=== PATIENT | female | born 1965 | race Caucasian/White ===

== ENCOUNTER 2016-08-01 17:39 | Emergency (ER) | payer SELFPAY ==
[2016-08-01 18:01] VITALS: BP 175/96
--- NOTE | 2016-08-01 18:54 | UC ---
Throat Pain/Nasal Eusebio HPI - HPI Summary HPI Summary: ST worsening x 4 days, nasal eusebio with sneeze and cough, no exposure to school- aged kids. Denies fever vomiting or rash. - History of Current Complaint Chief Complaint: UCRespiratory Stated Complaint: SORE THROAT Time Seen by Provider: 08/01/16 18:41 Hx Obtained From: Patient Hx Last Menstrual Period: hysterectomy ?: No Onset/Duration: Gradual Onset, Lasting Days Severity: Moderate Cough: Productive Associated Signs & Symptoms: Positive: Nasal Discharge. Negative: Fever, Vomiting, Rash - Allergies/Home Medications Allergies/Adverse Reactions: Allergies Allergy/AdvReac Type Severity Reaction Status Date / Time Acetaminophen [From Tylenol] Allergy Severe Shakes Verified 08/01/16 17:56 Penicillins Allergy Unknown Unknown Verified 08/01/16 17:56 Reaction Details Home Medications: Home Medications Naproxen [Naproxen 500 MG TABS] 500 mg PO BID PRN 08/01/16 [History Confirmed ] PMH/Surg Hx/FS Hx/Imm Hx Endocrine History Of: Denies: Diabetes, Thyroid Disease Cardiovascular History Of: Denies: Cardiac Disorders, Hypertension, Pacemaker/ICD Respiratory History Of: Denies: COPD, Asthma GI/ History Of: Denies: Ulcer, Renal Disease - Surgical History Surgical History: Yes Surgery Procedure, Year, and Place: hysterectomy; tonsilectomy - Family History Known Family History: Positive: Hypertension, Other - CVA mother - Social History Lives: Alone Alcohol Use: Occasionally Substance Use Type: None Smoking Status (MU): Heavy Every Day Tobacco Smoker Type: Cigarettes Amount Used/How Often: 1 ppd Length of Time of Smoking/Using Tobacco: 30 years Have You Smoked in the Last Year: Yes Review of Systems Constitutional: Negative Skin: Negative Eyes: Negative ENT: Sore Throat, Nasal Discharge Respiratory: Cough Cardiovascular: Negative Gastrointestinal: Negative Genitourinary: Negative Motor: Negative Neurovascular: Negative Musculoskeletal: Negative Neurological: Negative Psychological: Negative All Other Systems Reviewed And Are Negative: Yes Physical Exam Triage Information Reviewed: Yes Appearance: Well-Appearing, Pain Distress - mild Vital Signs: Initial Vital Signs Temp 97.2 F 08/01/16 17:57 Pulse 79 08/01/16 17:57 Resp 16 08/01/16 17:57 BP 175/96 08/01/16 17:57 Pulse Ox 99 08/01/16 17:57 Vital Signs Reviewed: Yes Eye Exam: Normal Eyes: Positive: Conjunctiva Clear ENT: Positive: Hearing grossly normal, Nasal congestion, Muffled/hoarse voice - hoarse. Negative: Tonsillar swelling - no tonsils Dental Exam: Other - dentures Neck exam: Normal Neck: Positive: Supple, Nontender, No Lymphadenopathy Respiratory Exam: Other - occ cough Respiratory: Positive: Chest non-tender, Lungs clear, Normal breath sounds, No respiratory distress, No accessory muscle use Cardiovascular Exam: Normal Cardiovascular: Positive: RRR, No Murmur Musculoskeletal Exam: Normal Neurological Exam: Normal Neurological: Positive: Alert Psychological Exam: Normal Skin Exam: Normal Throat Pain/Nasal Course/Dx - Differential Dx/Diagnosis Provider Diagnoses: URI, likely viral. Elevated blood pressure due to pain Discharge - Discharge Plan Condition: Stable Disposition: HOME Patient Education Materials: Upper Respiratory Infection (ED) Referrals: Melissa Gutiérrez MD [Primary Care Provider] - 2 Weeks Additional Instructions: Rapid strep negative. Try taking ibuprofen 1 hour before bedtime to help with your throat pain. You can also gargle with a numbing agent, such as chloraseptic or listerine. Call or return if you develop increasing fever, shortness of breath, chest pain , bloody sputum, or otherwise worsen. If you have not improved at all after several days, contact your primary care physician or return here.
== END 2016-08-01 19:18 | disposition home or self-care (01) ==
LOC: UCEAST 17:39
DX: J06.9 Acute upper respiratory infection, unspecified (principal); R03.0 Elevated blood-pressure reading, without diagnosis of hypertension; Z90.710 Acquired absence of both cervix and uterus; Z88.6 Allergy status to analgesic agent; Z88.0 Allergy status to penicillin; F17.210 Nicotine dependence, cigarettes, uncomplicated
CPT/HCPCS: 87651; 99211; G0463

== ENCOUNTER 2017-03-30 17:44 | Emergency (ER) | payer SELFPAY ==
[2017-03-30 18:03] VITALS: BP 158/97
--- NOTE | 2017-03-30 19:05 | UC ---
Ear Complaint HPI - HPI Summary HPI Summary: Patient presents with an unremarkable past medial history. She presents today with complaints of right ear fullness, and a sensation that she has something in her ear. Denies any canal drainage, trauma, or injury. She also complains of cough, chest congestion x one week. She denies any chest pain, dyspnea, abdominal pain, nausea, vomiting, diarrhea, rash or joint pain. - History of Current Complaint Chief Complaint: UCGeneralIllness Stated Complaint: EAR CLOGGED Time Seen by Provider: 03/30/17 18:39 Hx Obtained From: Patient Hx Last Menstrual Period: hysterectomy ?: No Onset/Duration: Gradual Onset, Lasting Days Severity Initially: Mild Severity Currently: Mild Associated Signs/Symptoms: Positive: URI Symptoms - Allergies/Home Medications Allergies/Adverse Reactions: Allergies Allergy/AdvReac Type Severity Reaction Status Date / Time Acetaminophen [From Tylenol] Allergy Severe Shakes Verified 03/30/17 18:03 Penicillins Allergy Unknown Unknown Verified 03/30/17 18:03 Reaction Details Home Medications: Home Medications Ibuprofen [Advil] 800 mg PO Q8HR PRN 03/30/17 [History Confirmed 03/30/17] PMH/Surg Hx/FS Hx/Imm Hx Previously Healthy: Yes - Surgical History Surgical History: Yes Surgery Procedure, Year, and Place: hysterectomy; tonsilectomy - Family History Known Family History: Positive: Hypertension, Other - CVA mother - Social History Occupation: Employed Full-time Lives: Alone Alcohol Use: Occasionally Substance Use Type: None Smoking Status (MU): Heavy Every Day Tobacco Smoker Type: Cigarettes Amount Used/How Often: 1 ppd Length of Time of Smoking/Using Tobacco: 30 years Have You Smoked in the Last Year: Yes - Immunization History Most Recent Influenza Vaccination: delines Review of Systems Constitutional: Negative Skin: Negative Eyes: Negative ENT: Ear Ache, Nasal Discharge, Sinus Congestion Respiratory: Cough Cardiovascular: Negative Gastrointestinal: Negative Genitourinary: Negative Motor: Negative Neurovascular: Negative Musculoskeletal: Negative Neurological: Negative Psychological: Negative Is Patient Immunocompromised?: No All Other Systems Reviewed And Are Negative: Yes Physical Exam Triage Information Reviewed: Yes Appearance: Well-Appearing Vital Signs: Initial Vital Signs Temp 98.4 F 03/30/17 17:58 Pulse 77 03/30/17 17:58 Resp 20 03/30/17 17:58 BP 158/97 03/30/17 17:58 Pulse Ox 96 03/30/17 17:58 Vital Signs Reviewed: Yes Eye Exam: Normal ENT Exam: Normal ENT: Positive: Nasal congestion, Nasal drainage, TM bulging, TM dull, TM red, Sinus tenderness Neck exam: Normal Neck: Positive: 1 Respiratory: Positive: Lungs clear, Normal breath sounds, No respiratory distress Cardiovascular Exam: Normal Abdominal Exam: Normal Skin Exam: Normal Ear Complaint Course/Dx - Course Course Of Treatment: Patient presents with a current history of smoking and presents with increased cough, and chest congeston without chest pain, dyspena or any other cardiiac symtpoms. She does have some course rhoncus lung sounds consistent with bronchitis, and also the right TM is dull and retracted consistent with otitis media. She was treated with zpk and albuterol. If her symtpoms do not improve I recommend she follow up with her PCP. She did verbalized understanding and was in agreement with the discharge plan. - Differential Dx/Diagnosis Differential Diagnosis/HQI/PQRI: Bronchitis, Otitis Media Provider Diagnoses: otitis media. bronchitis Discharge - Discharge Plan Condition: Stable Disposition: HOME Prescriptions: Albuterol HFA INHALER* [Ventolin HFA Inhaler*] 1 puff INH Q4H PRN #1 mdi PRN Reason: bronchitis Azithromycin TAB* [Zithromax TAB (Z-DEANDRA) 250 mg #6 tabs] 250 mg PO DAILY #6 tab Patient Education Materials: Otitis Media (ED), Acute Bronchitis (ED) Referrals: Melissa Gutiérrez MD [Primary Care Provider] -
== END 2017-03-30 19:00 | disposition home or self-care (01) ==
LOC: UCEAST 17:44
DX: H66.91 Otitis media, unspecified, right ear (principal); J40 Bronchitis, not specified as acute or chronic; F17.210 Nicotine dependence, cigarettes, uncomplicated; Z88.6 Allergy status to analgesic agent; Z88.0 Allergy status to penicillin
CPT/HCPCS: 99212; G0463

== ENCOUNTER 2017-08-09 10:01 | Emergency (ER) | payer OTHER ==
[2017-08-09 10:17] VITALS: BP 168/94
--- NOTE | 2017-08-09 10:30 | UC ---
Skin Complaint HPI - HPI Summary HPI Summary: PATIENT WAS OUT DOING YARD WORK 2 DAYS AGO AND HAS HAD RIGHT POSTERIOR SHOULDER PAIN SINCE THEN. HER MOM LOOKED AT IT AND FOUND IT WAS A TICK. TRIED TO REMOVE IT BUT SHE THINKS THERE MAY BE SOME RETAINED TICK PARTS. HAS SURROUNDING REDNESS AND TENDERNESS. - History of Current Complaint Chief Complaint: UCSkin Time Seen by Provider: 08/09/17 10:11 Stated Complaint: TICK BITE Hx Obtained From: Patient Hx Last Menstrual Period: hysterectomy Onset/Duration: Gradual Onset, Lasting Days, Still Present Timing: Constant Onset Severity: Mild Current Severity: Moderate Pain Intensity: 0 Pain Scale Used: 0-10 Numeric Location: Discrete - RIGHT UPPER BACK Aggravating Factor(s): Touch Alleviating Factor(s): Nothing Associated Signs & Symptoms: Positive: Tenderness - Allergy/Home Medications Allergies/Adverse Reactions: Allergies Allergy/AdvReac Type Severity Reaction Status Date / Time acetaminophen [From Tylenol] Allergy Shakes Verified 08/09/17 10:18 Penicillins Allergy Hives Verified 08/09/17 10:18 Review of Systems Constitutional: Negative Skin: Other - TICK BITE Respiratory: Negative Cardiovascular: Negative Gastrointestinal: Negative All Other Systems Reviewed And Are Negative: Yes PMH/Surg Hx/FS Hx/Imm Hx Previously Healthy: Yes - Surgical History Surgical History: Yes Surgery Procedure, Year, and Place: hysterectomy; tonsilectomy - Family History Known Family History: Positive: Hypertension, Other - CVA mother - Social History Alcohol Use: Occasionally Substance Use Type: None Smoking Status (MU): Heavy Every Day Tobacco Smoker Type: Cigarettes Amount Used/How Often: 1 ppd Length of Time of Smoking/Using Tobacco: 30 years Have You Smoked in the Last Year: Yes - Immunization History Most Recent Influenza Vaccination: delines Physical Exam Triage Information Reviewed: Yes Appearance: Well-Appearing, No Pain Distress, Well-Nourished Vital Signs: Initial Vital Signs Temp 98 F 08/09/17 10:12 Pulse 74 08/09/17 10:12 Resp 16 08/09/17 10:12 BP 168/94 08/09/17 10:12 Pulse Ox 97 08/09/17 10:12 Vital Signs Reviewed: Yes Eyes: Positive: Conjunctiva Clear ENT: Positive: Hearing grossly normal Neck: Positive: Supple Respiratory: Positive: No respiratory distress, No accessory muscle use Cardiovascular: Positive: Pulses Normal Abdomen Description: Positive: Soft Musculoskeletal: Positive: No Edema Neurological: Positive: Alert Psychological: Positive: Age Appropriate Behavior Skin: Positive: Other - TICK BITE SITE RIGHT UPPER BACK WITH MILD SURROUNDING ERYTHEMA AND TTP. NO RETAINED TICK PARTS SEEN Course/Dx - Diagnoses Provider Diagnoses: TICK BITE, LYME PEP Discharge - Sign-Out/Discharge Documenting (check all that apply): Discharge/Admit/Transfer - Discharge Plan Condition: Stable Disposition: HOME Prescriptions: Doxycycline Monohydrate [Doxycycline Monohydrate] 2 cap PO ONCE #2 cap Patient Education Materials: Tick Bite (ED) Referrals: Melissa Gutiérrez MD [Primary Care Provider] - If Needed Additional Instructions: TICK BITE PROPHYLAXIS You received 200mg of doxycycline for prophylaxis against Lyme disease. The Infectious Disease Society of [place] (IDSA) does not generally recommend antimicrobial prophylaxis for prevention of Lyme disease after a recognized tick bite. However, in areas that are highly endemic for Lyme disease, a single dose of doxycycline may be offered to adult patients (200 mg) who are not and to children older than 8 years of age (4 mg/kg up to a maximum dose of 200 mg) when all of the following circumstances exist: CRITERIA FOR RECEIVING PROPHYLACTIC TREATMENT FOR LYME DISEASE 1) TICK ATTACHED FOR AT LEAST 36 HRS 2) TICK IS AN ADULT OR [place] DEER TICK 3) YOU LIVE IN AN AREA WHERE LYME DISEASE IS PREVALENT (i.e., [place], [place], [place] , [place], [place], [place], [place], [place], [place], [place], [place], [place]) 4) YOU HAVE NO CONTRAINDICATION TO THE MEDICATION (DOXYCYCLINE) 5) PROPHYLAXIS IS BEGUN WITHIN 72 HRS OF TICK REMOVAL BE VIGILANT OF YOUR SYMPTOMS AND DON'T HESITATE TO GET SEEN AGAIN IF YOU DEVELOP UNEXPLAINED FEVER, HEADACHE, JOINT PAIN, BODY ACHES, RASH OR ANY OTHER CONCERNING SYMPTOMS. Antibiotic treatment following a tick bite is not recommended as a means to prevent anaplasmosis, babesiosis, ehrlichiosis, or [place] spotted fever. There is no evidence this practice is effective, and it may simply delay onset of disease. Instead, persons who experience a tick bite should be alert for symptoms suggestive of tickborne illness and consult a physician if fever, rash, or other symptoms of concern develop. - Billing Disposition and Condition Condition: STABLE Disposition: HOME
== END 2017-08-09 10:42 | disposition home or self-care (01) ==
LOC: UCEAST 10:01
DX: S40.261A Insect bite (nonvenomous) of right shoulder, initial encounter (principal); W57.XXXA Bitten or stung by nonvenomous insect and other nonvenomous arthropods, initial encounter; Y93.H9 Activity, other involving exterior property and land maintenance, building and construction; Y92.096 Garden or yard of other non-institutional residence as the place of occurrence of the external cause; Z88.6 Allergy status to analgesic agent; Z88.0 Allergy status to penicillin; F17.210 Nicotine dependence, cigarettes, uncomplicated
CPT/HCPCS: 99212; G0463

== ENCOUNTER → 2018-03-02 19:11 | Emergency (ER) | payer OTHER ==
[~2018-03-02 19:11] MED LIST: Iodixanol* (CONTRAST) 320 MG/ML 100 ML SDV IV ONE; Ketorolac INJ* 30 MG/ML 1 ML VIAL IV PUSH ONE; Morphine VIAL* 4 MG/ML VIAL (1 ml vial) IV ONE; NS 0.9% 1000 ML* 1,000 ML IV ONE; Ondansetron INJ* 2 MG/ML VIAL IV ONE; Tamsulosin CAP* 0.4 MG PO ONE; oxyCODONE/Acetamin 5/325 MG* TAB PO ONE
--- NOTE | 2018-03-02 19:51 | ED ---
Abdominal Pain/Female - HPI Summary HPI Summary: A 52 y/o female accompanied by family brought in by ambulance presents to the ED c/o LLQ abdominal pain. Currently, the patient is experiencing LLQ abdominal pain reaching 8/10 in severity. In the ED course, the patient has a pulse of 79 BPM, O2 saturation of 96%, and blood pressure of 176/105. As per triage, "Pt arrived BLS by [facility] c/o LLQ ABD pain since 1500hrs today. Pt had taken a dulcolax x2 this afternoon and soon started to have ABD cramping". According to the patient, the constant LLQ abdominal pain started approximately at 1500 today. She denies any urinary issues. Patient took two Dulcolax today. PMHx of hysterectomy and hypoglycemia, denies cholecystectomy and appendectomy. - History of Current Complaint Chief Complaint: EDAbdPain Stated Complaint: ABD PAIN Time Seen by Provider: 03/02/18 19:24 Hx Obtained From: Patient Hx Last Menstrual Period: hysterectomy Onset/Duration: Sudden Onset, Lasting Hours, Still Present Timing: Constant Severity Initially: Severe Severity Currently: Severe Pain Intensity: 8 Pain Scale Used: 0-10 Numeric Location: Discrete At: LLQ Radiates: No Character: Cramping Aggravating Factor(s): Nothing Alleviating Factor(s): Nothing Associated Signs and Symptoms: Positive: Negative Allergies/Adverse Reactions: Allergies Allergy/AdvReac Type Severity Reaction Status Date / Time acetaminophen [From Tylenol] Allergy Shakes Verified 08/09/17 10:18 Penicillins Allergy Hives Verified 08/09/17 10:18 PMH/Surg Hx/FS Hx/Imm Hx Endocrine/Hematology History: Denies: Hx Diabetes, Hx Thyroid Disease Cardiovascular History: Denies: Hx Hypertension, Hx Pacemaker/ICD Respiratory History: Denies: Hx Asthma, Hx Chronic Obstructive Pulmonary Disease (COPD) GI History: Denies: Hx Ulcer History: Denies: Hx Renal Disease Sensory History: Denies: Hx Hearing Aid Neurological History: Reports: Hx Headaches - topramate Psychiatric History: Denies: Hx Panic Disorder - Surgical History Surgery Procedure, Year, and Place: hysterectomy; tonsilectomy Infectious Disease History: No Infectious Disease History: Denies: Hx Clostridium Difficile, Hx Hepatitis, Hx Human Immunodeficiency Virus (HIV), Hx of Known/Suspected MRSA, Hx Shingles, Hx Tuberculosis, Hx Known/ Suspected VRE, Hx Known/Suspected VRSA, History Other Infectious Disease, Traveled Outside the [place] in Last 30 Days - Family History Known Family History: Positive: Hypertension, Other - CVA mother - Social History Alcohol Use: Occasionally Substance Use Type: Reports: None Smoking Status (MU): Heavy Every Day Tobacco Smoker Type: Cigarettes Amount Used/How Often: 1 ppd Length of Time of Smoking/Using Tobacco: 30 years Have You Smoked in the Last Year: Yes Review of Systems Negative: Fever Positive: Abdominal Pain - LLQ Positive: no symptoms reported All Other Systems Reviewed And Are Negative: Yes Physical Exam - Summary Physical Exam Summary: Appearance: Well appearing, no pain distress Skin: warm, dry, reflects adequate perfusion Head/face: normal Eyes: EOMI, TIANA ENT: normal Neck: supple, non-tender Respiratory: CTA, breath sounds present Cardiovascular: RRR, pulses symmetrical Abdomen: LLQ tenderness, soft Musculoskeletal: normal, strength/ROM intact Neuro: normal, sensory motor intact, A&Ox3 Triage Information Reviewed: Yes Vital Signs On Initial Exam: Initial Vitals Pulse BP Pulse Ox 79 176/105 98 03/02/18 19:22 03/02/18 19:22 03/02/18 19:22 Vital Signs Reviewed: Yes Diagnostics - Vital Signs Vital Signs Temp Pulse Resp BP Pulse Ox 03/02/18 19:35 97.7 F 85 16 176/105 100 03/02/18 19:32 81 97 03/02/18 19:22 79 176/105 98 - Laboratory Result Diagrams: 03/02/18 19:42 03/02/18 19:42 Lab Statement: Any lab studies that have been ordered have been reviewed, and results considered in the medical decision making process. - CT CT A/P CT Interpretation Completed By: Radiologist - Minimally obstructing 6 mm calculus left UPJ. ED PHYSICIAN REVIEWED THIS RADIOLOGY REPORT. Abdominal Pain Fem Course/Dx - Course Course Of Treatment: A 52 y/o female accompanied by family brought in by ambulance presents to the ED c/o LLQ abdominal pain. Currently, the patient is experiencing LLQ abdominal pain reaching 8/10 in severity. In the ED course, the patient has a pulse of 79 BPM, O2 saturation of 96%, and blood pressure of 176/105. As per triage, "Pt arrived BLS by [facility] c/o LLQ ABD pain since 1500hrs today. Pt had taken a dulcolax x2 this afternoon and soon started to have ABD cramping". According to the patient, the constant LLQ abdominal pain started approximately at 1500 today. She denies any urinary issues. Patient took two Dulcolax today. PMHx of hysterectomy and hypoglycemia, denies cholecystectomy and appendectomy. Physical exam revealed LLQ tenderness. A CT A/ P revealed minimally obstructing 6 mm calculus left UPJ. Hematology and Chemistry was done. Labs significant for 14.7 WBC, 33 MCH, 1.05 Creatinine, and 127 Glucose. In the ED course, the patient recieved Visipaque, Toradol, Morphine, Zofran, Percocet, Flomax, and IV fluids. Patient will be discharged with a diagnosis renal calculi. Patient will be sent home with Percocet and Flomax. Patient is to follow up with Urology in 2-3 days. Patient is agreeable with this plan. - Diagnoses Differential Diagnosis: Positive: Diverticulitis, Renal Colic, Urinary Tract Infection Provider Diagnoses: Renal calculi Discharge - Sign-Out/Discharge Documenting (check all that apply): Patient Departure - DISCHARGE - Discharge Plan Condition: Stable Disposition: HOME Prescriptions: Oxycodone HCl/Acetaminophen [Percocet] 1 tab PO TID #15 tab MDD 3 Tamsulosin CAP* [Flomax CAP*] 0.4 mg PO DAILY #14 cap Patient Education Materials: Kidney Stones (ED) Referrals: Rahul Rivero MD [Primary Care Provider] - 3 Days August Godinez MD [Medical Doctor] - 3 Days Additional Instructions: FOLLOW UP WITH UROLOGY IN 2-3 DAYS. TAKE MEDICATIONS PRESCRIBED. RETURN TO ED FOR ANY NEW OR WORSENING SYMPTOMS. - Billing Disposition and Condition Condition: STABLE Disposition: Home - Attestation Statements Document Initiated by Scribe: Yes Documenting Scribe: Lonnie Scott Provider For Whom Tan is Documenting (Include Credential): Balaji Duque MD Scribe Attestation: Lonnie Pineda, scribed for Balaji Duque MD on 03/02/18 at 2345. Scribe Documentation Reviewed: Yes Provider Attestation: The documentation as recorded by the Lonnie martin accurately reflects the service I personally performed and the decisions made by , Balaji Duque MD Status of Scribe Document: Viewed
[2018-03-02 19:55] LABS: ABS Basophils 0.1 10^3/ul (0-0.2); ABS Eosinophils 0.1 10^3/ul (0-0.6); ABS Lymphocytes 1.6 10^3/ul (1.0-4.8); ABS Monocytes 0.7 10^3/ul (0-0.8); ABS Neutrophils 12.2 10^3/ul (1.5-7.7); ABS Nucleated RBC 0 10^3/ul; Eosinophil % 0.7 %; Hematocrit 46 % (35-47); Hemoglobin 15.7 g/dl (12.0-16.0); Mean Corpuscular HGB Conc 34 g/dl (31-36); Mean Corpuscular Hemoglobin 33 pg (27-31); Mean Corpuscular Volume 95 fL (80-97); Mean Platelet Volume 7.4 fL (7.4-10.4); Nucleated Red Blood Cells % 0.1; Platelet Count 262 10^3/ul (150-450); Red Cell Distribution Width 13 % (10.5-15); White Blood Count 14.7 10^3/ul (3.5-10.8)
[2018-03-02 20:05] LABS: INR 0.89 (0.77-1.02)
[2018-03-02 20:13] LABS: EGFR Non-African American 55.3 (>60)
[2018-03-02 23:09] VITALS: BP 154/89
== END | disposition home or self-care (01) ==
LOC: ED 19:11
DX: N20.1 Calculus of ureter (principal); Z88.6 Allergy status to analgesic agent; Z88.0 Allergy status to penicillin; Z90.710 Acquired absence of both cervix and uterus; F17.210 Nicotine dependence, cigarettes, uncomplicated
CPT/HCPCS: 36415; 74177; 80053; 83690; 84702; 85025; 85610; 85730; 96374; 96375; 99284; A9270-GY; J1885; J2270; J2405; Q9967

== ENCOUNTER 2018-03-29 13:22 | Emergency (ER) | payer OTHER ==
[2018-03-29 13:57] VITALS: BP 139/88
--- NOTE | 2018-03-29 14:34 | UC ---
Shoulder Pain HPI - HPI Summary HPI Summary: 52 yo female presents with RIGHT shoulder pain. She tells me that about 2 months ago she tripped and fell onto her right shoulder. Since that time has had pain and decreased ROM in the shoulder. She has seen her PCP who did a steroid injection into the shoulder and PT for this, but is not having much improvement. She has not had an XR of the shoulder and someone advised her to obtain this. Denies numbness or tingling. - History of Current Complaint Chief Complaint: UCUpperExtremity Stated Complaint: SHOULDER INJURY Time Seen by Provider: 03/29/18 14:16 Hx Obtained From: Patient Hx Last Menstrual Period: na Onset/Duration: Sudden Onset Severity Initially: Severe Severity Currently: Severe Pain Intensity: 8 - Allergies/Home Medications Allergies/Adverse Reactions: Allergies Allergy/AdvReac Type Severity Reaction Status Date / Time acetaminophen [From Tylenol] Allergy Shakes Verified 03/29/18 13:57 Penicillins Allergy Hives Verified 03/29/18 13:57 Home Medications: Home Medications Lisinopril 40 mg PO DAILY WITH MEAL 03/29/18 [History Confirmed 03/29/18] NK [No Home Medications Reported] 03/29/18 [History Confirmed 03/29/18] PMH/Surg Hx/FS Hx/Imm Hx Cardiovascular History: Hypertension - Surgical History Surgical History: Yes Surgery Procedure, Year, and Place: hysterectomy; tonsilectomy - Family History Known Family History: Positive: Hypertension, Other - CVA mother - Social History Occupation: Employed Full-time Lives: With Family Alcohol Use: Occasionally Substance Use Type: None Smoking Status (MU): Heavy Every Day Tobacco Smoker Type: Cigarettes Amount Used/How Often: 1 ppd Length of Time of Smoking/Using Tobacco: 30 years Have You Smoked in the Last Year: Yes - Immunization History Most Recent Influenza Vaccination: delines Review of Systems All Other Systems Reviewed And Are Negative: Yes Constitutional: Positive: Negative Skin: Positive: Negative Respiratory: Positive: Negative Cardiovascular: Positive: Negative Neurovascular: Positive: Negative Musculoskeletal: Positive: Other: - right shoulder pain Neurological: Positive: Negative Psychological: Positive: Negative Physical Exam - Summary Physical Exam Summary: GENERAL: NAD. WDWN. No pain distress. SKIN: No rashes, sores, lesions, or open wounds. CHEST: No accessory muscle use. Breathing comfortably and in no distress. CV: Pulses intact radial and ulnar. Cap refill <2seconds MSK: RIGHT SHOULDER: Mild TTP at AC joint. Flexion to ~60deg before pain stops her. No edema or obvious bony deformities. Credit Counselor strength intact. Unable to perform specialized testing due to pain and decreased ROM. NEURO: Alert. Sensations intact C4-T1. PSYCH: Age appropriate behavior. Triage Information Reviewed: Yes Vital Signs: Initial Vital Signs Temp 97.8 F 03/29/18 13:53 Pulse 70 03/29/18 13:53 Resp 18 03/29/18 13:53 BP 139/88 03/29/18 13:53 Pulse Ox 100 03/29/18 13:53 Vital Signs Reviewed: Yes Shoulder Course/Dx - Course Course Of Treatment: XR: IMPRESSION: #. Osteoarthritis. #. Large inferior acromial bone spur. #. No significant interval change compared with the January 10, 2018 exam. Discussed results with pt. Will refer her to Orthopedics for further evaluation and treatment. - Differential Dx/Diagnosis Provider Diagnosis: Right shoulder pain Discharge - Sign-Out/Discharge Documenting (check all that apply): Patient Departure All imaging exams completed and their final reports reviewed: Yes - Discharge Plan Condition: Stable Disposition: HOME Patient Education Materials: Shoulder Pain (ED) Referrals: Rahul Rivero MD [Primary Care Provider] - Dave Dukes MD [Medical Doctor] - As Soon As Possible Additional Instructions: If you develop a fever, shortness of breath, chest pain, new or worsening symptoms - please call your PCP or go to the ED. Your blood pressure was high at todays visit. Please see your primary provider within 4 weeks for recheck and re-evaluation. Please call Orthopedics at the number below to schedule a follow up appointment as soon as possible for further evaluation of your shoulder pain - Billing Disposition and Condition Condition: STABLE Disposition: Home
== END 2018-03-29 15:01 | disposition home or self-care (01) ==
LOC: UCEAST 13:22
DX: M25.511 Pain in right shoulder (principal); I10 Essential (primary) hypertension; F17.210 Nicotine dependence, cigarettes, uncomplicated; Z88.6 Allergy status to analgesic agent; Z88.0 Allergy status to penicillin; Z79.899 Other long term (current) drug therapy; W01.0XXA Fall on same level from slipping, tripping and stumbling without subsequent striking against object, initial encounter; Y92.9 Unspecified place or not applicable
CPT/HCPCS: 99211; G0463

== ENCOUNTER 2018-08-06 13:06 | Emergency (ER) | payer OTHER ==
[2018-08-06 13:16] VITALS: BP 154/93
--- NOTE | 2018-08-06 13:29 | UC ---
Ear Complaint HPI - HPI Summary HPI Summary: 53-year-old female comes in with a chief complaint of blood coming out of her left ear. This been going on for about a week. Patient does clean her ear with Q-tips after shower. She reports seeing the blood on the Q-tip. No sinusitis upper respiratory tract infection symptoms. She is not a swimmer. She feels a pressure in the area of the left ear. - History of Current Complaint Chief Complaint: UCEar Stated Complaint: BLOOD IN EAR Time Seen by Provider: 08/06/18 13:09 Hx Last Menstrual Period: na Pain Intensity: 1 - Allergies/Home Medications Allergies/Adverse Reactions: Allergies Allergy/AdvReac Type Severity Reaction Status Date / Time acetaminophen [From Tylenol] Allergy Shakes Verified 08/06/18 13:10 Penicillins Allergy Unknown Verified 08/06/18 13:10 Reaction Details Home Medications: Home Medications Losartan/Hydrochlorothiazide [Losartan Potassium/Hydroc 100-12.5 mg] 1 tab PO DAILY 08/06/18 [History Confirmed 08/06/18] PMH/Surg Hx/FS Hx/Imm Hx Previously Healthy: Yes Cardiovascular History: Hypertension - Surgical History Surgical History: Yes Surgery Procedure, Year, and Place: hysterectomy;. tonsilectomy; - Family History Known Family History: Positive: Hypertension, Other - CVA mother - Social History Alcohol Use: Occasionally Substance Use Type: None Smoking Status (MU): Heavy Every Day Tobacco Smoker Type: Cigarettes Amount Used/How Often: 1 ppd Length of Time of Smoking/Using Tobacco: 30 years Have You Smoked in the Last Year: Yes - Immunization History Most Recent Influenza Vaccination: delines Review of Systems All Other Systems Reviewed And Are Negative: Yes Constitutional: Positive: Negative Skin: Positive: Negative Eyes: Positive: Negative ENT: Positive: Other - SEE HPI Respiratory: Positive: Negative Cardiovascular: Positive: Negative Gastrointestinal: Positive: Negative Motor: Positive: Negative Neurovascular: Positive: Negative Musculoskeletal: Positive: Negative Neurological: Positive: Negative Psychological: Positive: Negative Is Patient Immunocompromised?: No Physical Exam Triage Information Reviewed: Yes Appearance: Well-Appearing, No Pain Distress, Well-Nourished Vital Signs: Initial Vital Signs Temp 97.3 F 08/06/18 13:12 Pulse 71 08/06/18 13:12 Resp 18 08/06/18 13:12 BP 154/93 08/06/18 13:12 Pulse Ox 98 05/05/19 13:12 Vital Signs Reviewed: Yes Eye Exam: Normal Eyes: Positive: Conjunctiva Clear ENT: Positive: TMs normal, Other - Left ear canal has dried blood on floor of canal. Minimal cerumen. TM intact. No FB or mass appreciated.. Negative: Nasal congestion Neck: Positive: Supple Respiratory: Positive: No respiratory distress Musculoskeletal Exam: Normal Musculoskeletal: Positive: Strength Intact, ROM Intact Neurological Exam: Normal Neurological: Positive: Alert, Muscle Tone Normal Psychological Exam: Normal Psychological: Positive: Age Appropriate Behavior Skin Exam: Normal Ear Complaint Course/Dx - Course Course Of Treatment: I did not appreciate any abnormality in the tympanic membrane on the left. There is some dried blood on the floor of the ear canal along with some cerumen. At this time we'll treat for otitis externa. The overall plan is if the patient completely improves it would be follow-up as needed however, if she does not improve or she worsens she'll follow-up with ears nose and throat. - Differential Dx/Diagnosis Provider Diagnosis: Otitis externa, left Discharge - Sign-Out/Discharge Documenting (check all that apply): Patient Departure All imaging exams completed and their final reports reviewed: No Studies - Discharge Plan Condition: Stable Disposition: HOME Prescriptions: Ofloxacin 0.3% (Ear Drop)* [Floxin 0.3% OTIC.COLLINS (Ear Drop)] 5 drop LEFT EAR BID #1 btl Patient Education Materials: Otitis Externa (ED) Referrals: aRhul Rivero MD [Primary Care Provider] - Anthony Barnhart MD [Medical Doctor] - Additional Instructions: FOLLOW UP WITH ENT IF NOT COMPLETELY IMPROVED. GET REEVALUATED SOONER IF YOUR CONDITION WORSENS OR ANY QUESTIONS OR CONCERNS. - Billing Disposition and Condition Condition: STABLE Disposition: Home
== END 2018-08-06 13:41 | disposition home or self-care (01) ==
LOC: UCEAST 13:06
DX: H60.92 Unspecified otitis externa, left ear (principal); H61.22 Impacted cerumen, left ear; I10 Essential (primary) hypertension; Z88.6 Allergy status to analgesic agent; Z88.0 Allergy status to penicillin; F17.210 Nicotine dependence, cigarettes, uncomplicated
CPT/HCPCS: 99212; G0463

== ENCOUNTER 2019-01-02 10:57 | Emergency (ER) | payer OTHER ==
[2019-01-02 11:17] VITALS: BP 145/94
--- NOTE | 2019-01-02 11:22 | UC ---
Dental HPI - HPI Summary HPI Summary: 53 yo female presents with LEFT lower dental pain. She tells me that for the last 3-4 days she has had increasing pain to her left lower teeth. Over the last 24 hours has noticed swelling to her left jaw. She does have a dentist, but has not called them. She has been taking tylenol with mild relief. She is eating and drinking well. Denies fever or chills. - History of Current Complaint Chief Complaint: UCDentalProblem Stated Complaint: TOOTH ACHE, AND LUMP ON JAWLINE Time Seen by Provider: 01/02/19 11:22 Hx Obtained From: Patient Hx Last Menstrual Period: na Onset/Duration: Gradual Onset Severity: Moderate Pain Intensity: 7 Pain Scale Used: 0-10 Numeric - Allergies/Home Medications Allergies/Adverse Reactions: Allergies Allergy/AdvReac Type Severity Reaction Status Date / Time acetaminophen [From Tylenol] Allergy Shakes Verified 01/02/19 11:08 Penicillins Allergy Unknown Verified 01/02/19 11:08 Reaction Details PMH/Surg Hx/FS Hx/Imm Hx Cardiovascular History: Hypertension - Surgical History Surgical History: Yes Surgery Procedure, Year, and Place: hysterectomy;. tonsilectomy; - Family History Known Family History: Positive: Hypertension, Other - CVA mother - Social History Lives: With Family Alcohol Use: Occasionally Substance Use Type: None Smoking Status (MU): Heavy Every Day Tobacco Smoker Type: Cigarettes Amount Used/How Often: 1 ppd Length of Time of Smoking/Using Tobacco: 30 years Have You Smoked in the Last Year: Yes - Immunization History Most Recent Influenza Vaccination: delines Review of Systems All Other Systems Reviewed And Are Negative: No Constitutional: Positive: Negative Skin: Positive: Negative Eyes: Positive: Negative ENT: Positive: Dental Pain Respiratory: Positive: Negative Cardiovascular: Positive: Negative Neurological: Positive: Negative Psychological: Positive: Negative Physical Exam - Summary Physical Exam Summary: GENERAL: NAD. WDWN. No pain distress. SKIN: No rashes, sores, lesions, or open wounds. HEENT: Head: AT/NC Nose: Nasal mucosa pink and moist. NTTP maxillary and frontal sinus. Throat: Posterior oropharynx without exudates, erythema, or tonsillar enlargement. Uvula midline. NECK: Supple. Nontender. No lymphadenopathy. CHEST: CTAB. No r/r/w. No accessory muscle use. Breathing comfortably and in no distress. CV: RRR. Without m/r/g. Pulses intact. Cap refill <2seconds NEURO: Alert. PSYCH: Age appropriate behavior. Triage Information Reviewed: Yes Vital Signs: Initial Vital Signs Temp 97.7 F 01/02/19 11:09 Pulse 73 01/02/19 11:09 Resp 16 01/02/19 11:09 BP 145/94 01/02/19 11:09 Pulse Ox 100 01/02/19 11:09 Vital Signs Reviewed: Yes Dental: Positive: Percussion Tenderness @ - Tooth #18, Gross Decay/Caries @ - Tooth #18, Dental Fracture @ - Tooth #18, Abscess @ - Tooth #18, Other: - Multiple missing teeth. Negative: Cellulitis @, Cervical Lymphadenopathy, Bleeding Dental Complaint Course/Dx - Course Course Of Treatment: Dental abscess - Differential Dx/Diagnosis Provider Diagnosis: Dental abscess Discharge ED - Sign-Out/Discharge Documenting (check all that apply): Patient Departure All imaging exams completed and their final reports reviewed: No Studies - Discharge Plan Condition: Stable Disposition: HOME Prescriptions: Clindamycin HCl 300 mg PO TID #21 capsule Patient Education Materials: Dental Abscess (ED) Referrals: Rahul Rivero MD [Primary Care Provider] - Additional Instructions: If you develop a fever, shortness of breath, chest pain, new or worsening symptoms - please call your PCP or go to the ED immediately. Your blood pressure was high at todays visit. Please see your primary provider within 4 weeks for recheck and re-evaluation. - Billing Disposition and Condition Condition: STABLE Disposition: Home - Attestation Statements Provider Attestation: Pt not seen by me I was available for consult Chart reviewed sherley
== END 2019-01-02 11:50 | disposition home or self-care (01) ==
LOC: UCEAST 10:57
DX: K04.7 Periapical abscess without sinus (principal); I10 Essential (primary) hypertension; F17.210 Nicotine dependence, cigarettes, uncomplicated; Z88.0 Allergy status to penicillin
CPT/HCPCS: 99212; G0463